=== PATIENT | male | born 1990 | race Caucasian/White ===

== ENCOUNTER 2016-05-22 04:23 | Emergency (ER) ==
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
[2016-05-22] MEDS ORDERED: MOTRIN PO ONE (04:37)
[2016-05-22 05:29] VITALS: BP 122/76
== END 2016-05-22 05:29 | disposition home or self-care (01) ==
LOC: P.ED 04:23
DX: J11.1 Influenza due to unidentified influenza virus with other respiratory manifestations (principal); R42 Dizziness and giddiness
CPT/HCPCS: 87081; 87430; 87804; 99283